=== PATIENT | female | born 1945 | race Caucasian/White ===

== ENCOUNTER → 2016-12-09 | Outpatient (CLI) | payer MEDICARE, OTHER ==
[~2016-12-09] MED LIST: ALEN70TA2 PO; ASPI81TA2 PO; CA C1TAB82 PO; DULO30CA2 PO; HYDR25TA PO; LISI5TAB PO; METF500T4 PO; OMEP20CA10 PO; ROSU10TA PO
== END ==
LOC: WC.BC 13:13
DX: Z12.31 Encounter for screening mammogram for malignant neoplasm of breast (principal); Z80.3 Family history of malignant neoplasm of breast
CPT/HCPCS: 77063; G0202